=== PATIENT | male | born 1960 | race Caucasian/White ===

== ENCOUNTER 2016-08-19 21:48 | Emergency (ER) | payer BC ==
[~2016-08-19] VITALS: Ht 190.5 cm; Wt 112.4 kg
[2016-08-19 22:02] VITALS: TEMP 36.5; Ht 190.5 cm; Wt 112.4 kg
[2016-08-19] MEDS ORDERED: METH5TAB4 PO (22:40)
[2016-08-19] MEDS ORDERED: GLUCTAB7 PO (22:40)
[2016-08-19] MEDS ORDERED: ASPI81TA28 PO (22:40)
[2016-08-19] MEDS ORDERED: WARF5TAB7 PO (22:40)
[2016-08-19] MEDS ORDERED: MULT-513 PO (22:40)
[2016-08-19] MEDS ORDERED: IBUP-1050 PO (22:40)
[2016-08-19] MEDS ORDERED: MoRPHine SULFATE 10 MG/ML CARP/VIAL IV STA (22:51)
[2016-08-19] MEDS ORDERED: ONDANSETRON INJ 2 MG/ML 2 ML VIAL IV STA (22:51)
[2016-08-19] MEDS ORDERED: OXYCODONE IR HOME PACK PO STA (23:14)
[2016-08-19] MEDS ORDERED: CLINDAMYCIN 150MG HOME PACK PO STA (23:14)
[2016-08-19] MEDS ORDERED: CLINDAMYCIN HCL 150 MG CAP PO STA (23:14)
[2016-08-19] MEDS ORDERED: OXYC1TAB3 PO (23:32)
--- NOTE | 2016-08-19 23:32 | EMERGENCY ROOM VISIT NOTE ---
History First contact with patient: 22:08 Chief Complaint: DENTAL PAIN Stated Complaint: SORE TOOTH Nursing Triage Summary: pt reports he cracked his bottom lower tooth about 6 weeks ago, then had to have gum surgery and a temporary crown. Pt now reports pain worsened today around 1600, swelling. pt on 14mg Coumadin/day for post quad surgery. pt is from [facility] in [facility] [place] for work. "My sister is a nurse and told me I needed to get it checked out. They think it's an infection". Pt c/o right sided facial pain from jaw down. Hx of PEs History of Present Illness The patient is a 55 year old male who presents to the Emergency Room via private vehicle with complaints of "sore tooth". The patient states that earlier today around the time he was eating a hoagie he developed pain in the right jaw that may difficult for him to open the mouth. He states since then he 's been chewing on ice to help with the pain. He also notes that to close his mouth fully increases the pain near the right masseter muscle. He states that he had a cracked tooth repaired 5-6 weeks ago as well as gumline manipulation but since then has only had mild soreness. He is currently on warfarin for a ruptured quad that occurred April 02. He is on 14 mg daily. His last INR was 1.6 and this was last week. He was originally on 12 mg but now has been recently elevated to 14 mg of Coumadin daily. He gets his INRs checked weekly. Patient does have a history of PEs. He rates the dental pain as an 8-9/10. He denies any chest pain, shortness of breath, fevers, chills, abdominal pain. Review of Systems A complete 10-point Review of Systems was discussed with the patient, with pertinent positives and negatives listed in the History of Present Illness. All remaining Review of Systems questions can be considered negative unless otherwise specified. Past Medical/Surgical History Ruptured quadriceps, ruptured Achilles, pulmonary embolism Family History Unremarkable Social History Smoking Status: Never Smoker Social History: Patient is currently employed, he admits to alcohol use but denies tobacco use. Current/Historical Medications Scheduled Aspirin (Aspirin Ec), 81 MG PO DAILY Clindamycin HCl (Clindamycin HCl), 1 CAP PO QID Mveckqadkqq-Slgcuobcgea-Kkf C- (Glucosamine Chondroitin), 1 TAB PO DAILY Methylphenidate (Ritalin), 1 TAB PO BID Multivitamins/Minerals (Mvi With Minerals), 1 TAB PO DAILY Warfarin Sod (Jantoven), 14 MG PO DAILY Scheduled PRN Ibuprofen (Advil), 800 MG PO BID PRN for Pain Oxycodone Ir (Roxicodone Ir), 1-2 TAB PO Q4H PRN for Pain Physical Exam Vital Signs Date Time Temp Pulse Resp B/P Pulse Ox O2 Delivery O2 Flow Rate FiO2 08/19/16 23:45 70 20 158/60 98 08/19/16 22:02 36.5 58 18 161/101 97 Room Air Physical Exam VITAL SIGNS - Vital signs and nursing notes were reviewed. Patient is afebrile , he is hypertensive at 161/101, he is not tachycardic and is saturating well on room air 97%. GENERAL -55-year-old male appearing his stated age who is in no acute distress. Communicates well with provider and answers questions appropriately. SKIN - Without rashes. HEAD - NC/AT. EYES - PERRL with EOMI bilaterally. Sclera anicteric. Palpebral conjunctiva pink and moist with no injection noted. EARS - No deformities of external structures noted on gross examination bilaterally. No hemotympanum External auditory canals without discharge or otorrhea. Tympanic membranes pearly torres without retraction or bulging. No fluid or purulent material visualized behind the TM. Handle of malleus, umbo, cone of light, pars tensa/flaccid all easily visualized. NOSE - Midline and without cyanosis. No epistaxis or purulent drainage noted. Septum midline without deviation or septal hematoma noted. MOUTH/OROPHARYNX - Without perioral cyanosis. Buccal mucosa pink and moist and without leukoplakia. Tongue midline with equal elevation of palate bilaterally. No tonsillar hypertrophy, erythema, or exudates noted. Fair dentition noted. No evidence of poor dentition. No fluctuant abscess. No tenderness under the tongue region or Alexandre angina. There is tenderness to palpation overlying the right masseter. There is no locking upon opening and closing of the jaw at the TMJ. NECK - Neck with FROM. Supple to palpation. No lymphadenopathy noted. No nuchal rigidity. LUNGS - Chest wall symmetric without accessory muscle use, intercostals retractions, or central cyanosis. Normal vesicular breath sounds CTA B/L. No wheezes, rales, or rhonchi appreciated. CARDIAC - RRR with S1/S2. No murmur, rubs, or gallops appreciated. Medical Decision & Procedures Medications Administered Medications (Trade) Dose Ordered Sig/Kari Route Start Time Stop Time Status Last Admin Dose Admin Clindamycin HCl (Cleocin 150MG Home Pack) 1 homepack UD STAT PO 08/19/16 23:14 08/19/16 23:28 DC 08/19/16 23:39 1 [facility] Clindamycin HCl (Cleocin Cap) 300 mg NOW STAT PO 08/19/16 23:14 08/19/16 23:28 DC 08/19/16 23:33 300 MG Oxycodone HCl (Roxicodone Immediate Rel 5MG Home Pack) 1 homepack UD STAT PO 08/19/16 23:14 08/19/16 23:28 DC 08/19/16 23:39 1 [facility] Medical Decision Patient was seen and evaluated as above. After obtaining a thorough history and physical examination I spoke with the patient about the likely differential diagnoses of what he was experiencing and indicated that I would like to perform a workup that would include a CT scan as well as blood work. I did discuss the case with my attending. The decision was made to obtain a CT scan of the face as well as a CBC, PRP, ESR, CRP, PTT, prothrombin time, CT facial bones without IV contrast as well as 10 mg of morphine and 4 mg of Zofran for his pain and new onset nausea. I did not feel that this was dentalgia as he did not have any dental pain upon palpation. I was concerned that this could be jaw claudication secondary to his presentation and wanted to initiate a workup. Patient did note that he was going to be able to eat or take an UBER or taxi home or have a friend pick him up so that we could give him pain medication. The patient also stated that he was in communication with his dentist this evening. I was then called back to the room and at 11:11 PM the patient said that he spoke with his dentist and he indicated that the dentist believes it is a dental abscess and he trusts his dentists judgment. The patient was not disrespectful, but did respectfully declined the workup that I had ordered. The patient states that he was recommended by the dentist to receive antibiotics and pain medication and then follow up with a specialist regarding the abscess hopefully tomorrow. I reverified with the patient is truly declining any workup and this was verified. The patient was given clindamycin after my concern about penicillin and Augmentin interacting with the warfarin. I spoke with the in-house pharmacist and it was decided to give the patient 300 mg 4 times a day for 3 days. He was given the first dose here as well as a short-term supply for home with the remaining 3 days printed in a prescription. He was also given a home pack for OxyIR as well as a printed prescription. It is important to note that I believe the patient should've received the above workup but it was declined. The patient is to follow-up soon as possible with the specialist that his dentist recommended. I gave the patient a number for an oral maxillofacial surgeon in the area that he may follow-up with his well. The patient is from [place]. The patient was educated upon worrisome symptoms in which to return, had questions answered prior to discharge and was discharged home in good condition. In the evaluation and treatment of this patient the following differential diagnoses were entertained: Dental abscess, periapical abscess, jaw claudication , vasculitis, pulmonary embolism, myocardial infarction, TMJ syndrome, jaw fracture among others. [place] Drug Monitoring Program Search Results: patient reviewed within database, no issues identified Impression Primary Impression: Right facial pain Departure Information Dispostion Home / Self-Care Condition GOOD Prescriptions Clindamycin HCl (Clindamycin HCl) 300 Mg Cap 1 CAP PO QID for 3 Days, #12 CAP Prov: Jamel Cuba PA-C 08/19/16 Oxycodone Ir (Roxicodone Ir) 5 Mg Tab 1-2 TAB PO Q4H Y for Pain, #15 TAB For Initial Treatment Prov: Jamel Cuba PA-C 08/19/16 Referrals No Doctor, Assigned (PCP) Tariq Akhtar D.D.S. Patient Instructions My [facility] Additional Instructions You have been treated in the Emergency Department for facial pain. You have been prescribed Oxy IR to be used for pain control. This is a narcotic medication. You cannot drive or consume alcohol while on this medicine. This medicine should only be used for pain that cannot be controlled with over-the- counter pain medicines. You were prescribed Clindamycin to be taken 4 times daily (300mg every 6 hours for 3 days). This is an antibiotic. All antibiotics have the potential to cause diarrhea. Stop this medication and contact a medical provider if you were to develop any significant adverse side effects including: wheezing, shortness of breath, passing out, vomiting, or a diffuse rash. Always take antibiotics as directed and COMPLETE the ENTIRE course regardless of the improvement of your symptoms. You were not given penicillin or Augmentin because it can interact with the warfarin/Coumadin. It is recommended you call your family doctor first thing tomorrow morning regarding today's visit to schedule follow-up. For pain control, you can use the following gqol-bif-jpqiizd medicines (if >12 yo): - Regular strength (325mg/tab) Tylenol (acetaminophen) 2 tabs every 4-6 hours as needed. Do not exceed 12 tablets in a 24 hour period. Avoid taking more than 4 grams (4000 mg) of Tylenol per day. This includes any other sources of acetaminophen you may take on a regular basis. - Regular strength (200 mg/tab) Advil (ibuprofen) 1-2 tabs every 4-6 hours as needed. Do not exceed a dose of 3200 mg per day. As we discussed you're respectfully declined a workup and it is recommended follow-up with the individual your dentist has recommended tomorrow. I have listed above and oral surgeon. Return to the emergency department if you develop the following symptoms despite treatment course outlined above: fever, intractable pain, increased redness, swelling, or purulent discharge. Please return to emergency department with any new/concerning symptoms.
[2016-08-19] MEDS ORDERED: CLC/300 PO (23:33)
[2016-08-19 23:45] VITALS: BP 158/60; PULSE 70; O2SAT 98
== END 2016-08-19 23:47 | disposition home or self-care (01) ==
LOC: C.EDB 21:49 → C.EDC 23:47
DX: R51 Headache (principal); Z79.82 Long term (current) use of aspirin; Z79.01 Long term (current) use of anticoagulants; Z79.899 Other long term (current) drug therapy; Z86.711 Personal history of pulmonary embolism; R03.0 Elevated blood-pressure reading, without diagnosis of hypertension